=== PATIENT | male | born 2000 | race American Indian/Alaskan Native ===

== ENCOUNTER → 2021-03-26 15:51 | Outpatient (CLI) | payer BC, OTHER, MEDICAID, SELFPAY ==
[2021-03-26 17:56] LABS: Influenza A - CEPHEID Flu A NEGATIVE (NEGATIVE); Influenza B - CEPHEID Flu B NEGATIVE (NEGATIVE)
[2021-03-26 17:59] LABS: COVID-19 CEPHEID PCR (VTM/NP) POSITIVE (Negative)
== END ==
PROVIDERS: Visit Provider Physician Assistant
DX: U07.1 COVID-19 (principal); R05.9 Cough, unspecified; R51.9 Headache, unspecified; Z20.822 Contact with and (suspected) exposure to COVID-19
CPT/HCPCS: 0240U

== ENCOUNTER → 2021-06-11 18:21 | Outpatient (CLI) | payer BC, OTHER, MEDICAID, SELFPAY ==
[2021-06-11 20:35] LABS: Influenza A - CEPHEID Flu A NEGATIVE (NEGATIVE); Influenza B - CEPHEID Flu B NEGATIVE (NEGATIVE)
[2021-06-11 20:51] LABS: COVID-19 CEPHEID PCR (VTM/NP) Negative (Negative)
== END ==
PROVIDERS: Visit Provider Nurse Practitioner Family
DX: R05.9 Cough, unspecified (principal); J02.9 Acute pharyngitis, unspecified; Z20.822 Contact with and (suspected) exposure to COVID-19
CPT/HCPCS: 0240U; 87070

== ENCOUNTER 2021-07-31 21:18 | Emergency (ER) | payer BC, OTHER, MEDICAID, SELFPAY ==
[2021-07-31 21:36] VITALS: BP 140/63; PULSE 132; RESP 22; O2SAT 97; BMI 18.0
--- NOTE | 2021-07-31 21:42 | ED.MEDCLEAR ---
HPI - Medical Clearance General Chief complaint: Medical Clearance Stated complaint: Etoh Time Seen by Provider: 07/31/21 21:23 Source: patient and EMS Mode of arrival: EMS History of Present Illness HPI Narrative: 21-year-old gentleman brought in by medics significant agitation and significant alcohol intoxication.? Biting, spitting, hitting others.? He is escorted to room 13 and placed in four-point restraint.? Discussion as to medical clearance in this emergency department versus taking him to snf.? After contact with medical staff at snf he needs to have an alcohol level below 250.? He is stating that he simply wants to and wants to be killed however he is dramatically intoxicated.? Per police his friends note that he gets quite mean, angry and states things like I just want to and please kill me when he is this intoxicated.? His friends report that he is not suicidal when he is awake and sober. Related Information Home Medications Medication Instructions Recorded Confirmed No Known Home Medications 03/26/21 06/11/21 Allergies Allergy/AdvReac Type Severity Reaction Status Date / Time No Known Drug Allergies Allergy Unverified 06/11/21 18:22 Review of Systems Review of Systems ROS Unobtainable: Unobtainable due to mental status/LOC Patient History Social History Smoking Status: Current every day smoker Smoking Status: Current every day smoker tobacco type: vaping alcohol intake frequency: 0-2 drinks per day Exam Initial Vital Signs Initial Vital Signs: Vital Signs Pulse Rate 132 H 07/31/21 21:36 Respiratory Rate 22 07/31/21 21:36 Blood Pressure 140/63 07/31/21 21:36 Pulse Oximetry 97 07/31/21 21:36 Oxygen Delivery Method 07/31/21 21:36 General: Healthy appearing, acutely intoxicated, agitated, spitting, kicking and hitting. Able to speak in full sentences and loudly he will profanities HEENT: Moist mucous membranes, normal sclera with reactive pupils, Respiratory: Lungs are clear to auscultation, no wheezing no rales no rhonchi. Full and symmetrical air movement Cardiac: Regular rate and rhythm no murmurs no bruits Abdomen: Soft, nontender, good bowel tones, no flank pain Skin: Warm and dry, no rashes Neurologic: Grossly neurologically intact with no obvious asymmetries or abnormalities Extremities: Minor abrasion to the right shoulder and in a portion of the right elbow, well perfused Psych: Acutely intoxicated MDM - Medical Clearance Lab Data Result diagrams: 07/31/21 21:42 07/31/21 21:42 Labs: Lab Results 07/31/21 07/31/21 07/31/21 Range/Units 21:42 21:42 21:42 WBC 7.3 (4.5-11.0) X10^3/uL RBC 4.85 (4.5-5.9) X10^6/uL Hgb 16.3 (13.5-17.5) g/dL Hct 47.2 (41-53) % MCV 97.3 (80-100) fL MCH 33.6 (26-34) PG MCHC 34.6 (30-36) % RDW 13.6 (11.6-14.8) % Plt Count 372 (150-400) X10^3/uL Neut % (Auto) 68.5 (50-75) % Lymph % (Auto) 26.0 (25-40) % Josephine % (Auto) 4.3 (3-14) % Eos % (Auto) 0.6 L (2-4) % Baso % (Auto) 0.6 (0-2) % Neut # (Auto) 5000 (1259-4319) /uL Lymph # (Auto) 1900 (7954-0021) /uL Josephine # (Auto) 300 (0-900) /uL Eos # (Auto) 0 (0-450) /uL Baso # (Auto) 0 (0-100) /uL Sodium 146 H (137-145) mmol/L Potassium 5.3 H (3.4-5.1) mmol/L Chloride 108 H (98-107) mmol/L Carbon Dioxide 27 (22-32) mmol/L BUN 6 L (9-20) mg/dL Creatinine 0.83 (0.66-1.25) mg/dL Estimated GFR > 60 (>60) mL/min BUN/Creatinine Ratio 7.2 (6-22) Glucose 93 (70-100) mg/dL Calcium 8.9 (8.4-10.2) mg/dL Total Bilirubin 0.5 (0.2-1.3) mg/dL AST 60 H (17-59) IU/L ALT 17 (<50) IU/L Alkaline Phosphatase 87 (38-126) U/L Total Protein 8.1 (6.3-8.2) g/dL Albumin 4.7 (3.5-5.0) g/dL Globulin 3.4 (1.7-4.1) g/dL Albumin/Globulin Ratio 1.4 (1.0-2.8) U Opiates 300ng/mL cut (Negative) Ur Oxycodone Screen (Negative) Urine Methadone Screen (Negative) Ur Barbiturates Screen (Negative) U Tricyclic Antidepress (Negative) Ur Phencyclidine Scrn (Negative) Ur Amphetamines Screen (Negative) U Methamphetamines Scrn (Negative) Ur MDMA Scrn (Ecstasy) (Negative) U Benzodiazepines Scrn (Negative) Urine Cocaine Screen (Negative) U Marijuana (THC) Screen (Negative) Ethyl Alcohol 325 H ( - 10) mg/dL 07/31/21 08/01/21 Range/Units 22:50 04:08 WBC (4.5-11.0) X10^3/uL RBC (4.5-5.9) X10^6/uL Hgb (13.5-17.5) g/dL Hct (41-53) % MCV (80-100) fL MCH (26-34) PG MCHC (30-36) % RDW (11.6-14.8) % Plt Count (150-400) X10^3/uL Neut % (Auto) (50-75) % Lymph % (Auto) (25-40) % Josephine % (Auto) (3-14) % Eos % (Auto) (2-4) % Baso % (Auto) (0-2) % Neut # (Auto) (8347-5047) /uL Lymph # (Auto) (1658-8308) /uL Josephine # (Auto) (0-900) /uL Eos # (Auto) (0-450) /uL Baso # (Auto) (0-100) /uL Sodium (137-145) mmol/L Potassium (3.4-5.1) mmol/L Chloride (98-107) mmol/L Carbon Dioxide (22-32) mmol/L BUN (9-20) mg/dL Creatinine (0.66-1.25) mg/dL Estimated GFR (>60) mL/min BUN/Creatinine Ratio (6-22) Glucose (70-100) mg/dL Calcium (8.4-10.2) mg/dL Total Bilirubin (0.2-1.3) mg/dL AST (17-59) IU/L ALT (<50) IU/L Alkaline Phosphatase (38-126) U/L Total Protein (6.3-8.2) g/dL Albumin (3.5-5.0) g/dL Globulin (1.7-4.1) g/dL Albumin/Globulin Ratio (1.0-2.8) U Opiates 300ng/mL cut Negative (Negative) Ur Oxycodone Screen Negative (Negative) Urine Methadone Screen Negative (Negative) Ur Barbiturates Screen Negative (Negative) U Tricyclic Antidepress Negative (Negative) Ur Phencyclidine Scrn Negative (Negative) Ur Amphetamines Screen Negative (Negative) U Methamphetamines Scrn Negative (Negative) Ur MDMA Scrn (Ecstasy) Negative (Negative) U Benzodiazepines Scrn Negative (Negative) Urine Cocaine Screen Negative (Negative) U Marijuana (THC) Screen Negative (Negative) Ethyl Alcohol 180 H ( - 10) mg/dL Urine Dip Bedside Urine Glucose Negative Bedside Urine Bilirubin - Negative Bedside Urine Ketone - Negative Urine Specific [place] 1.010 Bedside Urine Occult Blood - Negative Bedside Urine pH 6.0 Bedside Urine Protein - Negative Bedside Urine Urobilinogen - Negative Bedside Urine Nitrite - Negative Bedside Urine Leukocytes - Negative Esterase ECG Data Interpretation: Sinus tachycardia at 125 Repeat 2:17am Sinus tach at 104 QTC is 449 Incomplete right bundle branch block No acute ischemic changes MDM Narrative Medical decision making narrative: 21-year-old gentleman brought in by police with significant intoxication and belligerence hurting himself and others. Stating that he just wants somebody to kill him and shouting obscenities. He is placed in 4 point restraints. Brief discussion with snf medical personnel as long as alcohol level was below 250 they could safely take him back. Unfortunately his alcohol level is at 325. He continues to be significantly agitated, unable to be directed with verbal cuing, yelling profanities that can be heard throughout the entire department. He is sedated with 4mg/kg IM ketamine. He has a brief period of hyperventilation/apnea. Nasopharyngeal airway is placed and his breathing is assisted with bag-valve mask for approximately 5 minutes. Breathing returns to normal and saturations are stable. 23:35 patient is now sleeping comfortably. Oxygen saturations are at 100. Heart rate is 110-120 in sinus rhythm. He is being given a L of fluid. Four point restraints are removed. He is quite comfortable. Will continue to closely follow him. Anticipate rechecking alcohol level at approximately 4:30 a.m. morning. 0500 ETOH 180 After Ketamine, patient has had a quiet night. He has had a total of 2L NS. He remains sleeping soundly at this time 600 patient's heart rate and blood pressure are reassuring. He continues to sober nicely. At this point he is safe for home discharge and cleared for snf. Discharge Plan Departure Patient Disposition: Home Clinical Impression: Alcohol intoxication Qualifiers: Complication of substance-induced condition: uncomplicated Qualified Code(s): F10.920 - Alcohol use, unspecified with intoxication, uncomplicated Instructions: DI for Alcohol Use Disorder Activity Restrictions/Additional Instructions: Your alcohol level was at 325 this evening. You were so intoxicated your danger to yourself and those around you. Getting this intoxicated is a large red flag for alcohol use disorder. I would strongly recommend that you consider not drinking. Alcohol is quite obviously a drug because of significant agitation and will cause more problems for you if you choose to continue drinking. You are cleared for snf at this time. Prescriptions: No Action No Known Home Medications Referrals: Miscellaneous,DoctorMD [Primary Care Provider] -
--- NOTE | 2021-07-31 21:42 | ED.GENADULT ---
HPI - General Adult General Chief complaint: Medical Clearance Stated complaint: Etoh Time Seen by Provider: 07/31/21 21:23 Source: patient and EMS Mode of arrival: EMS Related Data Home Medications Medication Instructions Recorded Confirmed No Known Home Medications 03/26/21 06/11/21 Allergies Allergy/AdvReac Type Severity Reaction Status Date / Time No Known Drug Allergies Allergy Unverified 06/11/21 18:22 Patient History Social History Smoking Status: Current every day smoker Smoking Status: Current every day smoker tobacco type: vaping alcohol intake frequency: 0-2 drinks per day Exam Initial Vital Signs Initial Vital Signs: Vital Signs Pulse Rate 132 H 07/31/21 21:36 Respiratory Rate 22 07/31/21 21:36 Blood Pressure 140/63 07/31/21 21:36 Pulse Oximetry 97 07/31/21 21:36 Oxygen Delivery Method 07/31/21 21:36 Course Orders Ordered: ED Orders 07/31/21 21:38 ETOH [Ethanol (ETOH)] Stat 07/31/21 21:39 Complete Blood Count AUTO DIFF Stat Comprehensive Metabolic Panel Stat Discontinued Medications Ketamine HCl (Ketamine 500 Mg/5 Ml Inj) 400 mg IM NOW ONE Stop: 07/31/21 21:24 Vital Signs Vital signs: Vital Signs - 8 hr 07/31/21 21:36 Pulse Rate 132 H Respiratory Rate 22 Blood Pressure 140/63 Pulse Oximetry 97 Oxygen Delivery Method Room Air Discharge Plan Departure Prescriptions: No Action No Known Home Medications Referrals: Miscellaneous,Doctor [Primary Care Provider] - Restraint [id number] Restraint Puku-lj-Dsuv Evaluation Dqos-ou-Vewr #1: Date: 07/31/21 Time: 21:43 Patient Appearance: Unkempt, Disheveled and Inappropriate Level of Consciousness: Combative, Disoriented and Inappropriate Speech Pattern: Inappropriate (yelling loudly), Includes Profanity and Slurred Mood Description: Hostile and Labile Ability to Follow Directions: Poor Hallucination Type: None Thought Process: Disorganized Respirations: Normal respiratory rate Cardiac: Regular Rate (tachcardic) and Regular Rhythm Circulation: Moves all extremities, peripheral pulses palpable and Skin warm and dry (abrasion inner elbow) Behavior necessitating restraint: Agitated, ETOH/Substance Abuse, Attempt to self harm and Violent Restraint Risks: Airway obstruction, Restricted blood flow, Damaged nerves and Damaged tissue Restraint risks explained to patient: No Reaction to Intervention: Agitated, Constant Movement Restraint Needs: Continue Restraints
[2021-07-31 22:30] LABS: Add Manual Diff / Slide Review NO; Basophils Absolute Auto 0 /uL (0-100); Basophils Percent Auto 0.6 % (0-2); Eosinophils Absolute Auto 0 /uL (0-450); Eosinophils Percent Auto 0.6 % (2-4); Hematocrit 47.2 % (41-53); Hemoglobin 16.3 g/dL (13.5-17.5); Lymphocytes Absolute Auto 1900 /uL (1100-4500); Mean Corpuscular HGB Conc 34.6 % (30-36); Mean Corpuscular Hemoglobin 33.6 PG (26-34); Mean Corpuscular Volume 97.3 fL (80-100); Monocytes Absolute Auto 300 /uL (0-900); Monocytes Percent Auto 4.3 % (3-14); Neutrophils Absolute Auto 5000 /uL (1500-7000); Neutrophils Percent Auto 68.5 % (50-75); Platelet Count 372 X10^3/uL (150-400); Red Blood Cell Count 4.85 X10^6/uL (4.5-5.9); Red Cell Distribution Width 13.6 % (11.6-14.8); White Blood Cell Count 7.3 X10^3/uL (4.5-11.0)
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
[2021-07-31 22:36] LABS: Alanine Aminotransferase 17 IU/L (<50); Albumin 4.7 g/dL (3.5-5.0); Albumin Globulin Ratio 1.4 (1.0-2.8); Alkaline Phosphatase 87 U/L (38-126); Aspartate Aminotransferase 60 IU/L (17-59); BUN Creatinine Ratio 7.2 (6-22); Bilirubin Total 0.5 mg/dL (0.2-1.3); Blood Urea Nitrogen 6 mg/dL (9-20); Calcium 8.9 mg/dL (8.4-10.2); Carbon Dioxide 27 mmol/L (22-32); Chloride 108 mmol/L (98-107); Estimated Glomerular Filt Rate > 60 mL/min (>60); Globulin 3.4 g/dL (1.7-4.1); Glucose 93 mg/dL (70-100); HEMOLYSIS 17 (0-50); Potassium 5.3 mmol/L (3.4-5.1); Sodium 146 mmol/L (137-145); Total Protein 8.1 g/dL (6.3-8.2)
--- NOTE | 2021-07-31 22:42 | PC.NURSE ---
Pt was able to wiggle his left wrist out of restraints. This was immediately noticed and his wrist was placed back in restraints. Pt screaming and cussing at staff during this. Pt then asking for help to void. Pt informed that 3 staff members were able to assist him void while staying in restraints, but he had to verbalize he would stay still and cooperate. Pt cussing at staff making inappropriate sexual comments and pulling at restraints violently. Staff left pt room at this time, stating that we will come back and assist him when he is not so violent and aggressive towards staff.
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
[2021-07-31 23:02] LABS: Ethanol (ETOH) 325 mg/dL
[2021-07-31] MEDS: KETAMINE 500 MG/5 ML INJ 200 MG IM (23:21)
[2021-07-31 23:43] LABS: UR Morphine/Opiate cutoff 300 Negative (Negative); Ur Creatinine Normal (Normal); Ur Specific Gravity Normal (Normal); Urine Amphetamines Negative (Negative); Urine Barbiturates Negative (Negative); Urine Benzodiazepines Negative (Negative); Urine Cocaine Negative (Negative); Urine MDMA Negative (Negative); Urine Methadone Negative (Negative); Urine Methamphetamines Negative (Negative); Urine Oxycodone Negative (Negative); Urine Phencyclidine Negative (Negative); Urine Tetrahydrocannabinol Negative (Negative); Urine Tricyclic Antidepressant Negative (Negative); Urine pH Normal (Normal)
[2021-07-31 23:49] VITALS: BP 144/71; PULSE 133; O2SAT 98
--- NOTE | 2021-07-31 23:51 | PC.NURSE ---
Restraints off at [id number]
[2021-07-31 23:53] VITALS: BP 141/70; PULSE 137; RESP 19; O2SAT 100
[2021-07-31 23:54] VITALS: BP 127/65; PULSE 134; RESP 19; O2SAT 100
[2021-07-31 23:59] VITALS: BP 129/67; PULSE 127; RESP 18; O2SAT 100
[2021-08-01] VITALS (27 sets, daily range): BP systolic 86–123; BP diastolic 42–69; PULSE 91–129; RESP 14–21; O2SAT 96–100
[2021-08-01] MEDS: SODIUM CHLORIDE 0.9% 1,000 ML 1000 ML IV
--- NOTE | 2021-08-01 00:09 | PC.NURSE ---
2321: Ketamine given IM into right thigh due to pt still being verbally/physically inappropriate/threatening. Pt remains continuously monitored. 2323: Pt began to calm. O2 monitor placed on toe, RR 14, sats 96% RA. HR tachy 120s. Pt mumbling. One restraint from hand/leg removed. 2325: Pt RR 9, sats began to decrease to 85% Ra. Placed on NC 10L. Sats continued to drop and respirations down to 6/min. MD notified and immediately to room. Head tilt/chin lift and ambu bag w/O2 to assist with respirations. IV placed. Suction set up. RT called. Nasal trumpet also placed. Sats increased to mid/high 90s w/ambu bag. NS bolus started. 2330: Nasal trumpet removed as pt is having strong gag reflex. Pt breathing 10-12/min. Placed on side. Mouth suctioned. Pads placed on side rails. [employer] states they are signing off and will follow up with him in court. Provider asked [employer] if pt is okay to leave in the morning when he is discharged and [employer] said yes. Remaining two restraints removed. 2345: EKG done/given to provider. Pt RR 17, 3L O2 98%. Responds to physical stimuli but does not wake fully to respond verbally.
[2021-08-01 04:29] LABS: Ethanol (ETOH) 180 mg/dL
--- NOTE | 2021-08-01 06:11 | PC.NURSE ---
Pt awoke to staff members in room. Pt alert and was quickly reoriented by staff to his situation and location. Pt gait steady, follows commands. VSS at time of discharge with police under arrest. Pt tolerated PO intake.
== END 2021-08-01 06:22 | disposition home or self-care (01) ==
PROVIDERS: Emergency Provider Emergency Medicine
DX: F10.129 Alcohol abuse with intoxication, unspecified (principal); Y90.8 Blood alcohol level of 240 mg/100 ml or more; R06.81 Apnea, not elsewhere classified; R45.1 Restlessness and agitation
CPT/HCPCS: 80053; 80305; 80320; 81003; 85025; 93005; 93010; 96360; 99285; 99291

== ENCOUNTER 2022-11-20 21:19 | Emergency (ER) | payer BC, OTHER, SELFPAY ==
[2022-11-20 21:30] VITALS: BP 139/65; PULSE 123; RESP 20; TEMP 36.1; O2SAT 97; BMI 19.5
--- NOTE | 2022-11-20 21:36 | PC.NURSE ---
Patient eloped after being triaged. He declined SI/HI and endorsed that he feels safe at home. Stated I'm just drunk and want to go home so I can get up for work in the morning.
== END 2022-11-20 21:38 | disposition left against medical advice (07) ==
LOC: ED 21:32
CPT/HCPCS: 99281

== ENCOUNTER 2023-09-12 15:51 | Emergency (ER) | payer BC, OTHER, SELFPAY ==
[2023-09-12 15:53] VITALS: BP 136/69; PULSE 108; RESP 16; TEMP 37.2; O2SAT 98; BMI 22.2
[2023-09-12] MEDS: ACETAMINOPHEN 325 MG TABLET 650 MG PO (16:45)
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
[2023-09-12 21:14] VITALS: BP 119/66; PULSE 67; RESP 18; O2SAT 100
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
[2023-09-12] MEDS: IBUPROFEN 400 MG TABLET PO (22:01)
[2023-09-12] MEDS: methocarbamoL 500 MG TABLET PO (23:38)
[2023-09-12 23:39] VITALS: BP 123/68; PULSE 67; RESP 18; O2SAT 99
== END 2023-09-12 23:45 | disposition home or self-care (01) ==
PROVIDERS: Emergency Provider Emergency Medicine
DX: S06.0X0A Concussion without loss of consciousness, initial encounter (principal); S00.03XA Contusion of scalp, initial encounter; S16.1XXA Strain of muscle, fascia and tendon at neck level, initial encounter; S29.012A Strain of muscle and tendon of back wall of thorax, initial encounter; V89.2XXA Person injured in unspecified motor-vehicle accident, traffic, initial encounter; W22.8XXA Striking against or struck by other objects, initial encounter
CPT/HCPCS: 70450; 72125; 99283; 99284

== ENCOUNTER → 2023-10-10 10:20 | Outpatient (CLI) | payer BC, SELFPAY ==
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
== END ==
PROVIDERS: Referring Provider Family Medicine; Visit Provider Family Medicine
DX: S06.0X0D Concussion without loss of consciousness, subsequent encounter (principal); F07.81 Postconcussional syndrome
CPT/HCPCS: 70450